=== PATIENT | male | born 1995 | race Two or more races ===

== ENCOUNTER 2019-10-27 18:21 | Emergency (ER) | payer OTHER ==
[2019-10-27 19:00] VITALS: BP 123/61
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
== END 2019-10-27 19:10 | disposition home or self-care (01) ==
LOC: ER 18:21
DX: S16.1XXA Strain of muscle, fascia and tendon at neck level, initial encounter (principal); V49.40XA Driver injured in collision with unspecified motor vehicles in traffic accident, initial encounter
CPT/HCPCS: 99283